=== PATIENT | male | born 1955 | race African-American/Black ===

== ENCOUNTER 2022-11-11 09:46 | Outpatient (CLI) | payer MEDICARE, SELFPAY ==
--- NOTE | 2022-11-11 10:05 | ECG_ITS ---
Measurements Intervals [place] Rate: P: IL: QRS: QRSD: T: QT: QTc: Interpretive Statements SINUS BRADYCARDIA BORDERLINE AV CONDUCTION DELAY INFERIOR INFARCT, AGE INDETERMINATE ABNORMAL ECG Electronically Signed On 11-11-2022 13:30:12 [employer] by Luther Adam D.O.
[2022-11-11 11:07] LABS: Anion Gap 2 mmol/L (8-16); Blood Urea Nitrogen 12 mg/dL (9-20); Calcium 10.3 mg/dL (8.4-10.2); Carbon Dioxide 33 mmol/L (22-30); Chloride 100 mmol/L (98-107); Estimated Glomerular Filt Rate > 60; Glucose 99 mg/dL (65-110); Potassium 3.7 mmol/L (3.4-5.0); Sodium 135 mmol/L (137-145)
[2022-11-11 15:53] LABS: Hemoglobin A1C 5.6 % (<5.7)
== END 2022-11-11 09:47 | disposition home or self-care (01) ==
PROVIDERS: Anesthesiology; PCP Family Medicine; Visit Provider Urology
DX: Z01.818 Encounter for other preprocedural examination (principal); I10 Essential (primary) hypertension; N39.3 Stress incontinence (female) (male); R94.31 Abnormal electrocardiogram [ECG] [EKG]
CPT/HCPCS: 36415; 80048; 83036; 87086; 93005

== ENCOUNTER 2022-11-16 00:08 | Day surgery (SDC) | payer MEDICARE, SELFPAY ==
--- NOTE | 2022-11-11 08:05 | PC.NURSE ---
Report to the Outpatient Waiting Room, entrance under the green pavilion located off [facility], at time _1000 on date __11/16/22 . Planned Procedure Time: _1200 . Time changes happen often and if your time is changed the preop area will call you the afternoon before. - You and your visitor will be asked to self-screen and do not enter if you have any COVID symptoms. - Only one visitor is requested with a max of two and NO children visitors are allowed at this time. - The patient visitor may be requested to leave or wait in car when not with patient due to distancing restrictions. - A mask is optional within the hospital at this time. Patients may have clear liquids (water, carbonated beverages, clear teas, apple juice) until 3 hours prior to surgery with a maximum of 20 ounces. - No food from midnight until time of surgery - Infants may have breast milk until 4 hours before surgery, formula 6 hours prior to surgery. - Children will be allowed to drink immediately following surgery. If applicable, please bring a bottle or sippy cup to assist with drinking. Juice, water, soda, and popsicles are readily available. For infants on formula, please bring formula the day of surgery. Pacifiers are allowed. Take the following medications with a SIP of water the morning of surgery: ___NONE DO NOT STOP ANY OF YOUR OTHER PRESCRIPTION MEDICATIONS PRIOR TO SURGERY ?EXCEPT THE FOLLOWING Medications to discontinue per physician NONE Date to take last dose Please no make-up, nail latvian, hairspray, perfume, deodorant, or body powder the day of surgery. No jewelry (including any body piercings) or valuables the day of surgery, leave them at home. Please take a shower or bath the night before, or the morning of, surgery with an antibacterial soap. Wear comfortable, loose fitting clothing. Children are encouraged to wear pajamas. - Jewelry must be removed prior to entering the operating room. Rings and piercings that are not removed may be cut off. - The hospital will not accept responsibility for valuables. - Please leave all valuables, including medications, at home the day of surgery. If you are going home after surgery, a licensed power truck driver must drive you home. - NO public transportation without another adult if you receive anesthesia. - We recommend that an adult stay with you for 24 hours following discharge. - We also recommend that you do not drive, make important decision, drink alcoholic beverages, or take any drugs that were not prescribed by your health care provider for at least 24 hours after your discharge time. Follow any additional instructions given to you from your surgeon. If you or anyone in your household have experienced Covid symptoms in the past week, please notify your surgeon or the nurse liaison at the phone number below for possible testing. Telephone instructions given to _PATIENT and asked if any additional questions and then verbalized understanding. Patient advised to call surgeon office or pre surgery nurse liaison [phone] if any additional questions.
[2022-11-11 08:18] VITALS: BMI 33.2
[2022-11-16] VITALS (18 sets, daily range): BP systolic 104–142; BP diastolic 50–73; PULSE 73–96; RESP 12–18; TEMP 36.1–36.8; O2SAT 95–100
[2022-11-16] MEDS: GENTAMICIN SULFATE INJ 455 MG in DEXTROSE 5% 100 ML 97.79 MG IVPB (11:15)
[2022-11-16] MEDS: LACTATED RINGERS 1,000 ML 30 ML IV CONT ×2 (11:15→15:50)
--- NOTE | 2022-11-16 12:27 | P.PNAN_ITS ---
Anes - Initial Pre Proc Eval Procedure: Operation Date: 11/16/22 12:00 Proposed Procedures p Advanced Male Sling, with Cystoscopy - Cheo Avelar MD Date/Time: 11/16/22 12:27 Surgeon: Cheo Avelar MD Pre Op Diagnosis: stress incontinence Patient Data Age: 67 Gender: M Height: 1.83 m Weight: 111.2 kg Allergies Allergy/AdvReac Type Severity Reaction Status Date / Time aspirin AdvReac Gastrointestinal Verified 11/11/22 07:51 Upset codeine AdvReac Hives Verified 11/11/22 07:51 Home Medications Medication Instructions Recorded Confirmed Type losartan 100 1 tablet PO DAILY 11/11/22 11/11/22 History mg-hydrochlorothiazide 25 mg tablet oxybutynin chloride 10 mg 10 mg PO DAILY 11/11/22 11/11/22 History tablet,extended release 24 hr Patient hx anesthesia problems: none Family hx anesthesia problems: none Results Review: All pre-operative results and documents have been reviewed as part of the pre- operative evaluation. REPLACED BY [facility] Past Medical History Medical History H/O: HTN (hypertension) Social History Social History Years smoked: 2 Smoking status: Former smoker Tobacco type: cigarettes Smoking end date: 09/04/79 Living arrangements: with family Spiritual care concerns: No Anes - Eval Final PreProcedure Day of Procedure 11/16/22 12:27 Patient weight: obese Heart: regular rate and rhythm Lungs: clear to auscultation Airway: Mallampati scale class II Neurological: alert and oriented Last oral intake: >/= 8 hours ASA classification: II Emergent: no Anesthetic plan: proceed Anesthesia type and monitoring: general LMA and standard monitoring Results Review: All pre-operative results and documents have been reviewed as part of the pre- operative evaluation. Informed Consent: The patient's anesthetic plan and its attendant risks and benefits were discussed with the patient/family/POA. Questions were solicited and answers provided to the satisfaction of the patient/family/POA.
--- NOTE | 2022-11-16 12:30 | WPDHPUPDATE1 ---
History and Physical Update Update Date/Time: 11/16/22 12:30 History and Physical has been reviewed, including an updated exam of the patient. There are NO changes in the patient's condition. Risks, benefits, and alternatives have been discussed and questions answered. Patient agrees to proceed with procedure.
[2022-11-16] MEDS: ceFAZolin 1 GM/NS 50 ML 1 GM/50 ML BAG IVPB (13:24)
[2022-11-16] MEDS: ceFAZolin SODIUM 1 GM VIAL (14:04)
[2022-11-16] MEDS: BUPivacaine HCL 0.25% PF 30 ML VIAL 20 ML INFILTRATE (14:04)
--- NOTE | 2022-11-16 15:53 | W.PM.PROC2 ---
Procedure Note - Detailed Date of Procedure 11/16/22 Pre-op Diagnosis stress incontinence Post-op Diagnosis Same Procedure Performed 1. Placement of AMS Advance male sling. 2. Cystoscopy. Surgeon Cheo Avelar MD Anesthesia General Description of Procedure Informed consent was obtained. The patient was taken to the operating room and given preoperative IV antibiotics with vancomycin and gentamicin, the patient has received oral Levaquin for the past 48 hours at home, and has done a 3-day Hibiclens wash. The patient was induced with general anesthesia. We then shaved, and the patient received a Betadine scrub followed by ChloraPrep. The patient was in the dorsal lithotomy position. Drapes were placed and then again prepped with Chloraprep. A 16-Syriac Stuart catheter was inserted. We made a 3 cm incision in the perineum. We then dissected down and identified the bulbar spongiosis muscle. The muscle layer was opened. We identified the urethra and it was mobilized laterally as well as proximally. We did take down the central tendon for approximately 3-4 cm. This allowed mobilization of the urethra. We then irrigated copiously.We secured the mesh to the spongiosum with 3-0 Vicryl suture with the proximal end at point of dissection of central tendon. We used the Advance trocar passers to place the sling through the obturator foramen. There was good positioning noted. The catheter was removed. We then performed flexible cystoscopy. We inspected the urethra in the bladder. There was no injury from sling placement. We then tightened the sling. We did note that the sling did compress nicely. A 12-F Stuart catheter was inserted.We then irrigated copiously. We then closed bulbar spongiosis with a 2-0 Vicryl suture. We then tunneled the arms of the sling into the perineal incision. We performed multiple layers of closure with 3-0 Vicryl suture and the skin was closed with a 3-0 Vicryl horizontal mattress. We reapproximated the skin at the stab incisions for placement of the trocars with 4-0 Monocryl. Surgical glue was applied to all incisions.We placed a scrotal supporter. The catheter was left to gravity. The patient was then awakened and taken to the recovery room in stable condition. Complications No immediate complications Condition Stable Disposition PACU
[2022-11-16] MEDS: fentaNYL CITRATE INJ (*CRX) 100 MCG/2 ML VIAL 25 MCG IV PUSH (17:29)
--- NOTE | 2022-11-16 18:08 | ADMGEN ---
This patient, Keyon Fernandez, was admitted to Medical Room 259-01. Patient/family oriented to hospital policies and general routines including ID bracelet, bed and alarms, visiting hours, pain management, procedures, bathroom and other care routines, personal items, smoking policy, room service/diet, and visiting hours. Information on how to activate the Rapid Response Team has been discussed. Patient/Family are encouraged to report perceived risks to care and to ask questions if they do not understand what they are told or what they should do.
[2022-11-16] MEDS: DOCUSATE SODIUM 100 MG CAPSULE PO (18:22)
[2022-11-16] MEDS: DEXTROSE 5%/0.45% SOD CHL 1,000 ML 125 ML IV CONT (18:22)
[2022-11-16] MEDS: HYDROcodone/acetaminophen (*CRX) 5-325 MG TABLET 1 TAB PO (21:44)
[2022-11-17 03:24] VITALS: BP 129/88; PULSE 96; RESP 18; TEMP 36.6; O2SAT 95
[2022-11-17] MEDS: DEXTROSE 5%/0.45% SOD CHL 1,000 ML 125 ML IV CONT (04:22)
[2022-11-17] MEDS: DOCUSATE SODIUM 100 MG CAPSULE PO ×2 (08:22→16:54)
[2022-11-17] MEDS: HYDROcodone/acetaminophen (*CRX) 5-325 MG TABLET 1 TAB PO ×2 (08:22→12:14)
[2022-11-17] MEDS: ENOXAPARIN 30 MG/0.3 ML SYRINGE SUB-Q (08:23)
[2022-11-17] MEDS: hydroCHLOROthiazide 25 MG TABLET PO (08:23)
[2022-11-17] MEDS: levoFLOXacin 500 MG TABLET PO (08:23)
[2022-11-17] MEDS: LOSARTAN POTASSIUM 100 MG TABLET PO (08:23)
[2022-11-17 08:24] VITALS: RESP 18; O2SAT 95
[2022-11-17] MEDS: oxyBUTYnin CHLORIDE XL 5 MG TAB.ER.24 10 MG PO (08:24)
[2022-11-17 10:15] VITALS: BP 115/59; PULSE 79; RESP 16; TEMP 36.4; O2SAT 96
--- NOTE | 2022-11-17 11:03 | WPDANESPN ---
Anes - Prog Note Post-Op Date/Time: 11/17/22 10:25 Cardiovascular status: normal Respiratory status: normal Airway patency: baseline Mental status: baseline Post-Op hydration status: normal Vital Signs: Last Vital Signs Temp 97.6 F 11/17/22 10:15 Pulse 79 11/17/22 10:15 Resp 16 11/17/22 10:15 BP 115/59 L 11/17/22 10:15 Pulse Ox 96 11/17/22 10:15 O2 Del Method Room Air 11/17/22 08:24 O2 Flow Rate 2 11/16/22 17:45 Pain Score (VAS): 2 I/O: Intake & Output 11/16/22 11/17/22 11/17/22 23:59 07:59 15:59 Intake Total 400 1150 Output Total 1200 1500 Balance -800 -350 Post-procedural complaints: none Patient Feedback: Patient satisfied with anesthetic care. Other Findings: rey catheter recently removed. unable to void at this time
--- NOTE | 2022-11-17 12:18 | WPDUROPN2 ---
Progress Note: A&P Assessment and Plan (1) Stress incontinence: Code(s): N39.3 - Stress incontinence (female) (male) Status: Acute Assessment and Plan: Remove rey and perform voiding trial. If able to urinate and tolerate pain, ok to discharge home later today. Subjective Subjective Date/Time Seen: 11/17/22 12:18 1. Placement of AMS Advance male sling. 2. Cystoscopy. He is doing very well. Will remove rey and perform voiding trial today, then bladder scan to ensure emptying. Home this afternoon. Post Op day: 1 Review of Systems Cardiovascular: Cardiovascular: Denies chest pain Respiratory: Respiratory: Reports no additional respiratory complaints Gastrointestinal: Gastrointestinal: Reports abdominal pain, Denies nausea and Denies vomiting Genitourinary: Genitourinary: Denies hematuria, Denies genital pain, Denies dysuria and Denies flank pain Exam Const: General: cooperative; No comfortable Resp: Effort & Inspection: normal respiratory effort Cardio: Rate: regular rate GI: GI Palp: Yes Soft to palpation and No Tenderness to palpation present (GI) : General: Yes no CVA tenderness Urinary Catheter: Urinary Catheter: patent and draining and urine clear Extrem: Right lower extremity: no edema Left lower extremity: no edema Objective Data Vital Signs Vital Signs: Vital Signs - 24 hr 11/16/22 12:23 11/16/22 15:50 11/16/22 16:00 Temperature 98.1 F 97.4 F L Pulse Rate 78 96 85 Respiratory Rate 14 12 12 Blood Pressure 142/73 H 141/72 H 130/64 Pulse Oximetry 98 100 99 Oxygen Delivery Room Air Simple Face Mask Simple Face Mask Oxygen Flow Rate 8 8 11/16/22 16:10 11/16/22 16:15 11/16/22 16:25 Temperature Pulse Rate 88 84 84 Respiratory Rate 12 12 13 Blood Pressure 124/71 120/72 127/70 Pulse Oximetry 99 100 100 Oxygen Delivery Simple Face Mask Simple Face Mask Room Air Oxygen Flow Rate 8 8 11/16/22 16:40 11/16/22 16:50 11/16/22 17:00 Temperature 96.9 F L Pulse Rate 84 84 82 Respiratory Rate 13 15 12 Blood Pressure 124/63 124/68 119/70 Pulse Oximetry 96 97 100 Oxygen Delivery Room Air Room Air Room Air Oxygen Flow Rate 11/16/22 17:15 11/16/22 17:30 11/16/22 17:45 Temperature Pulse Rate 77 73 78 Respiratory Rate 12 12 14 Blood Pressure 111/73 121/70 118/69 Pulse Oximetry 95 95 99 Oxygen Delivery Room Air Nasal Cannula Nasal Cannula Oxygen Flow Rate 2 2 11/16/22 18:16 11/16/22 17:46 11/16/22 18:01 Temperature 98.1 F 98.1 F Pulse Rate 73 76 Respiratory Rate 18 16 Blood Pressure 104/50 L 113/58 L Pulse Oximetry 98 99 99 Oxygen Delivery Room Air Oxygen Flow Rate 11/16/22 18:31 11/16/22 19:31 11/16/22 23:31 Temperature 98.1 F 98.2 F 97.9 F Pulse Rate 81 83 93 Respiratory Rate 16 18 18 Blood Pressure 128/63 125/59 L 122/60 Pulse Oximetry 97 97 97 Oxygen Delivery Oxygen Flow Rate 11/16/22 20:00 11/17/22 03:24 11/17/22 08:24 Temperature 97.9 F Pulse Rate 96 Respiratory Rate 18 18 Blood Pressure 129/88 Pulse Oximetry 95 95 Oxygen Delivery Room Air Room Air Oxygen Flow Rate 11/17/22 10:15 Temperature 97.6 F Pulse Rate 79 Respiratory Rate 16 Blood Pressure 115/59 L Pulse Oximetry 96 Oxygen Delivery Oxygen Flow Rate Intake/Output Intake/Output: Intake & Output 11/14/22 11/15/22 11/16/22 11/17/22 23:59 23:59 23:59 23:59 Intake Total 450 1390 Output Total 1200 2600 Balance -750 -1210 Meds/Results Medications: Active Medications Generic Name Dose Route Start Last Admin Trade Name Freq PRN Reason Stop Dose Admin Hydrocodone Bitart/Acetaminophen 1 tab 11/16/22 17:46 11/17/22 12:14 Hydrocodone/Acetaminophen (*Crx) 5-325 Mg Tablet PO 1 tab Q4H PRN Administration Pain Rated 1-6 Docusate Sodium 100 mg 11/16/22 17:46 11/17/22 08:22 Docusate Sodium 100 Mg Capsule PO 100 mg BID MONIHSA Administration Enoxaparin Sodium 30 mg 11/17/22 09:00
[2022-11-17 14:00] VITALS: BP 122/89; PULSE 99; RESP 18; TEMP 36.8; O2SAT 98
[2022-11-17] MEDS: GENTAMICIN 80MG/SOD CHL 50 ML 80 MG/50 ML BAG 100 MG IVPB (15:34)
== END 2022-11-17 19:00 | disposition home or self-care (01) ==
LOC: ANHSURGERY 10:20 → ANH2MED 17:49
PROVIDERS: PCP Family Medicine; Visit Provider Urology
PROC: (CPT 53440; principal; 2022-11-16 12:00)
DX: N39.3 Stress incontinence (female) (male) (principal); I10 Essential (primary) hypertension; Z87.891 Personal history of nicotine dependence; E66.9 Obesity, unspecified; Z68.31 Body mass index [BMI] 31.0-31.9, adult
CPT/HCPCS: 53440; 36415; 80048; 83036; 87086; 93005; A9270; C1771; J0690; J1100; J1170; J1580; J1650; J2250; J2370; J2405; J2704; J3010; J3370; J7030; J7120